=== PATIENT | male | born 1990 | race African-American/Black ===

== ENCOUNTER 2019-09-04 19:12 | Emergency (ER) | payer MEDICAID ==
[~2019-09-04] VITALS: Ht 185.4 cm; Wt 101.9 kg
[2019-09-04 19:27] VITALS: BP 133/68
--- NOTE | 2019-09-04 20:10 | PHYS DOC ---
Past History Past Medical History: Asthma Past Surgical History: Other Additional Past Surgical Histo: RIGHT FEMUR Alcohol Use: None General Adult EDM: Chief Complaint: LOWER EXT PAIN HPI: HPI: " I jumped off a wall about two weeks ago.. and I felt a tear or pull in my Lt lower hip and leg.... ever since... It is really sore in this hip and Lt. leg.. it gets better.. then I move wrong and it gets worse..." Patient is a 28 year old Male who presents with above hx and complaints of Lt hip and pelvis pain after jumping off a wall two weeks ago. Pt. is localized to Lt lower groin. No obvious hernia. Patient pain appears to follow muscle groups of left groin. ( Pectinus, psoas, adductor). Increased pain when patient attempts to abduct leg and do straight leg lift. No adenopathy appreciated. Patient denies other injury. Patient is able to walk with minimal discomfort. However when he attempts to do" high steps" or walk on uneven ground he get groin pain. This neurovascular intact. Pulses are equal in the groin. Patient denies any motivation. Patient denies any travel or sick contacts. Patient denies immunosuppression. Patient normally follows with Dr. Tavares. Review of Systems: Review of Systems: Constitutional: Denies fever or chills Eyes: Denies change in visual acuity HENT: Denies nasal congestion or sore throat Respiratory: Denies cough or shortness of breath Cardiovascular: Denies chest pain or edema GI: Denies abdominal pain, nausea, vomiting, bloody stools or diarrhea : Denies dysuria Musculoskeletal: Complaints of Lt hip and groin pain Integument: Denies rash Neurologic: Denies headache, focal weakness or sensory changes Endocrine: Denies polyuria or polydipsia Lymphatic: Denies swollen glands Psychiatric: Denies depression or anxiety Heart Score: Risk Factors: Risk Factors: DM, Current or recent (<one month) smoker, HTN, HLP, family history of CAD, obesity. Risk Scores: Score 0 - 3: 2.5% MACE over next 6 weeks - Discharge Home Score 4 - 6: 20.3% MACE over next 6 weeks - Admit for Clinical Observation Score 7 - 10: 72.7% MACE over next 6 weeks - Early Invasive Strategies Family History: Family History: Noncontributory to presentation Current Medications: Current Meds: See nursing for home meds Allergies: Allergies: Allergies Coded Allergies Type Severity Reaction Last Updated Verified No Known Drug Allergies 09/04/19 No Physical Exam: PE: Constitutional: Well developed, well nourished, mild to moderate distress, non- toxic appearance. [] HENT: Normocephalic, atraumatic, bilateral external ears normal, oropharynx moist, no oral exudates, nose normal. [] Eyes: PERRLA, EOMI, conjunctiva normal, no discharge. [] Neck: Normal range of motion, no tenderness, supple, no stridor. [] Cardiovascular:Heart rate regular rhythm, no murmur [] Lungs & Thorax: Bilateral breath sounds equal at apex with few scattered wheezes auscultation [] Abdomen: Bowel sounds normal, soft, no tenderness, no masses, no pulsatile masses. [] Skin: Warm, dry, no erythema, no rash. [] Back: No tenderness, no CVA tenderness. [] Extremities: No tenderness, no cyanosis, no clubbing, ROM intact, no edema. [] Except complaints in left groin area as per HPI. Old surgery scar Rt., hip area. Neurologic: Alert and oriented X 3, normal motor function, normal sensory function, no focal deficits noted. [] Psychologic: Affect anxious, judgement normal, mood normal. [] Current Patient Data: Vital Signs: Vital Signs Date Time Temp Pulse Resp B/P (MAP) Pulse Ox O2 Delivery O2 Flow Rate FiO2 09/04/19 19:27 97.8 86 18 133/68 (89) 99 Room Air EKG: EKG: [] Radiology/Procedures: Radiology/Procedures: [][address] [address] IMAGING REPORT Signed PATIENT: PHILIPP CASTANEDA JACCOUNT: [id number] : 1990 LOCATION: ER AGE: 28 SEX: M EXAM STATUS: REG ER ORD. PHYSICIAN: ABHIJIT VICKERS MD REASON: Pain after jumping off wall to left hip and pelvis PROCEDURE: HIP LEFT 2V WITH PELVIS Pelvis and left Two View hip: Clinical History: Pain after jumping off of a wall. Technique: AP view the pelvis AP and frog leg views of the left hip were obtained. Comparison: None. Findings: There is obscuration of bony detail of sacrum due to overlying bowel gas. There has been prior repair of a right hip fracture with 3 partially threaded screws. The remaining visualized osseous structures appear normal. The femoral acetabular relationship is normal. Impression: No acute findings. Electronically signed by: Jame Patiño III, MD (09/04/2019 9:19 PM) [id number] DICTATED AND SIGNED BY: JAME PATIÑO III, MD DATE: 09/04/192118 CC: ABHIJIT VICKERS MD; PCP,NO ~ Course & Med Decision Making: Course & Med Decision Making Pertinent Labs and Imaging studies reviewed. (See chart for details) Ice packs as needed. Take Tylenol and Ibuprofen for pain. Follow-up primary care. Return for any concerns. Patient warned that groin muscle tear sometimes takes weeks to months to heal. Impression : 1. Lt. Groin muscle tear [] Alfredo Disclaimer: Alfredo Disclaimer: This electronic medical record was generated, in whole or in part, using a voice recognition dictation system. Departure Departure: Disposition: HOME/RESIDENCE PRIOR TO ADM Condition: STABLE Referrals: PCP,GRETCHEN (PCP) Alfredo Disclaimer This chart was dictated in whole or in part using Voice Recognition software in a busy, high-work load, and often noisy Emergency Department environment. It may contain unintended and wholly unrecognized errors or omissions. ABHIJIT VICKERS MD Sep 04, 2019 20:10
--- NOTE | 2019-09-04 21:23 | RAD ---
Pelvis and left Two View hip: Clinical History: Pain after jumping off of a wall. Technique: AP view the pelvis AP and frog leg views of the left hip were obtained. Comparison: None. Findings: There is obscuration of bony detail of sacrum due to overlying bowel gas. There has been prior repair of a right hip fracture with 3 partially threaded screws. The remaining visualized osseous structures appear normal. The femoral acetabular relationship is normal. Impression: No acute findings. Electronically signed by: Del Tamayo III, MD (09/04/2019 9:19 PM) [id number]
== END 2019-09-04 21:35 | disposition home or self-care (01) ==
LOC: ER 19:12
DX: S39.011A Strain of muscle, fascia and tendon of abdomen, initial encounter (principal); M25.552 Pain in left hip; R10.2 Pelvic and perineal pain; J45.909 Unspecified asthma, uncomplicated; Z98.890 Other specified postprocedural states; W17.89XA Other fall from one level to another, initial encounter; Y93.39 Activity, other involving climbing, rappelling and jumping off; Y92.89 Other specified places as the place of occurrence of the external cause; Y99.8 Other external cause status
CPT/HCPCS: 73502; 99283

== ENCOUNTER 2020-03-27 03:32 | Emergency (ER) | payer MEDICAID ==
[~2020-03-27] VITALS: Ht 185.4 cm; Wt 101.9 kg
[2020-03-27 03:35] VITALS: BP 156/94
[2020-03-27] MEDS ORDERED: OXYC-325 PO (04:05)
[2020-03-27] MEDS ORDERED: CLIN300C8 PO (04:05)
--- NOTE | 2020-03-27 04:05 | PHYS DOC ---
Past History Past Medical History: Asthma Past Surgical History: Other Additional Past Surgical Histo: RIGHT FEMUR Alcohol Use: None Adult General Chief Complaint Chief Complaint: DENTAL PROBLEM HPI HPI Patient is a 29-year-old previously healthy male who presents to the emergency room complaining of dental pain. This is been ongoing intermittently for several months. He saw a dentist at [facility] who told him that he needed his tooth removed. He has not yet gotten an appointment for this and is supposed to follow-up with [facility] at [place]. The last 3 days he has had increasi ng pain in his left back bottom tooth. He says denies any facial swelling or fever. He does generally feel a lot of pain that is worse with swallowing. Is not having difficulty swallowing or talking. He has not had any drainage from his mouth. He is concerned it may be infected. Review of Systems Review of Systems Complete ROS is negative unless otherwise documented in HPI Allergies Allergies Allergies Coded Allergies Type Severity Reaction Last Updated Verified No Known Drug Allergies 09/04/19 No Physical Exam Physical Exam General: Awake, alert, NAD. Well Nourished, well hydrated. Cooperative HEENT: Atraumatic, EOMI, PERRL, airway patent, moist oral mucosa, left lower wisdom tooth with significant decay and missing angled with surrounding soft tis edda swelling, no fluctuance area Neck: Supple, trachea midline Respiratory: CTA bilaterally, normal effort, no wheezing/crackles CV: RRR, no murmur, cap refill <2 GI: Soft, nondistended, nontender, no masses MSK: No obvious deformities Skin: Warm, dry, intact Neuro: A&O x3, speech NL, sensory and motor grossly intact, no focal deficits Psych: Normal affect, normal mood, not suicidal or homicidal Current Patient Data Vital Signs Vital Signs Date Time Temp Pulse Resp B/P (MAP) Pulse Ox O2 Delivery O2 Flow Rate FiO2 03/27/20 03:35 98.8 68 20 156/94 (114) 100 Room Air EKG EKG [] Radiology/Procedures Radiology/Procedures [] Heart Score Risk Factors: Risk Factors: DM, Current or recent (<one month) smoker, HTN, HLP, family history of CAD, obesity. Risk Scores: Risk Factors: DM, Current or recent (<one month) smoker, HTN, HLP, family history of CAD, obesity. Course & Med Decision Making Course & Med Decision Making Pertinent Labs and Imaging studies reviewed. (See chart for details) Patient is a 29-year-old male who presents to the emergency room with pain in his wisdom tooth. Patient appears to need to have this tooth pulled. He does have resources to follow-up with [facility] at [place] and can call them tomorrow he states. He is not have any difficulty with swallowing, talking. He has not had any significant swelling in his face. At this time it appears that he is likely getting a tooth infection. There is no area of fluctuance that can be drained at this time. Patient will be placed on antibiotics and I have discussed with him that it is very important he follow-up in the [facility] clinic as soon as possible. Patient's test results and vitals while in the ED were fully reviewed and discussed with the patient. Patient is stable and at this time does not need admission to the hospital. We have discussed strict return precautions and the importance of following up with their Primary Care Physician. Patient stated understanding and was given an opportunity to ask any questions. Patient is in agreement with plan. Dragon Disclaimer Dragon Disclaimer This electronic medical record was generated, in whole or in part, using a voice recognition dictation system. Departure Departure: Impression: Primary Impression: Dental infection Disposition: 01 DC HOME SELF CARE/HOMELESS Condition: STABLE Referrals: PCP,GRETCHEN (PCP) Patient Instructions: Dental Abscess Additional Instructions: Please call Oral surgeon tomorrow to get an appointment. Return if you develop swelling, fever, difficulty swallowing, difficulty talking. Scripts Oxycodone HCl/Acetaminophen (Percocet 5-325 mg Tablet) 1 Each Tablet 1 TAB PO PRN QID PRN for SEVERE PAIN 7-10 MDD 4 Tablet(s) for 5 Days, #10 TAB 0 Refills Prov: MAHAD GASPAR MD 03/27/20 Clindamycin Hcl (CLINDAMYCIN HCL) 300 Mg Capsule 1 CAP PO TID for dental, #21 CAP Prov: MAHAD GASPAR MD 03/27/20 MAHAD GASPAR MD Mar 27, 2020 04:05
[2020-03-27] MEDS ORDERED: CLINDAMYCIN HCL 150 MG CAPSULE PO ONE (04:30)
[2020-03-27] MEDS ORDERED: oxyCODONE/APAP 5/325 1 TAB TABLET PO ONE (04:30)
== END 2020-03-27 04:40 | disposition home or self-care (01) ==
LOC: ER 03:32
DX: K04.7 Periapical abscess without sinus (principal); J45.909 Unspecified asthma, uncomplicated
CPT/HCPCS: 99283

== ENCOUNTER 2020-10-01 19:43 | Emergency (ER) | payer MEDICAID, OTHER ==
[~2020-10-01] VITALS: Ht 182.9 cm; Wt 84.5 kg
[~2020-10-01 19:43] MED LIST: CLIN300C9 PO; OXYC-325 PO
[2020-10-01 20:03] VITALS: BP 135/76
--- NOTE | 2020-10-01 20:40 | PHYS DOC ---
Past History Past Medical History: Asthma Past Surgical History: Other Additional Past Surgical Histo: RIGHT FEMUR Alcohol Use: None Adult General Chief Complaint Chief Complaint: DENTAL PROBLEM HPI HPI Patient is a 29-year-old male who presents with a chief complaint of dental pain. States he had his wisdom teeth pulled 10 days ago and noticed yesterday that he was having some tenderness and swelling at the site of surgery. States he tried calling his oral surgeon but was unable to get through. States he has pain in the area, 6 out of 10, dull and achy in nature. States he took some Tylenol at home with which gave only minimal relief. States he was given Augmentin and ibuprofen prescriptions when he left his dentist but did not get them filled. Denies any pain or trouble swallowing, fevers, chest pain, shortness of breath, abdominal pain, nausea, vomiting. Review of Systems Review of Systems Review of systems otherwise unremarkable except noted in HPI Allergies Allergies Allergies Coded Allergies Type Severity Reaction Last Updated Verified No Known Drug Allergies 09/04/19 No Physical Exam Physical Exam Constitutional: Well developed, well nourished, no acute distress, non-toxic appearance. [] HENT: Normocephalic, atraumatic, bilateral external ears normal, oropharynx moist, no oral exudates, nose normal. [] Eyes: conjunctiva normal, no discharge. [] Neck: Normal range of motion, no tenderness, supple, no lymphadenopathy [] Neurologic: Alert and oriented X 3, no focal deficits noted. [] Psychologic: Affect normal, judgement normal, mood normal. [] Current Patient Data Vital Signs Vital Signs Date Time Temp Pulse Resp B/P (MAP) Pulse Ox O2 Delivery O2 Flow Rate FiO2 10/01/20 20:03 98.6 80 16 135/76 (95) 98 Room Air EKG EKG [] Radiology/Procedures Radiology/Procedures [] Heart Score C/O Chest Pain: No Risk Factors: Risk Factors: DM, Current or recent (<one month) smoker, HTN, HLP, family history of CAD, obesity. Risk Scores: Risk Factors: DM, Current or recent (<one month) smoker, HTN, HLP, family history of CAD, obesity. Course & Med Decision Making Course & Med Decision Making Patient is a 29-year-old male who presents with dental pain Vital signs not concerning. Physical exam noted above. Patient given oral pain medicine in the ED. Started on antibiotics. Discussed all findings with patient. Discussed pain management at home. Advised on antibiotics. Advised to call oral surgeon first thing in the morning and set up a ER follow- up visit immediately. Gave strict return precautions to the ED. Patient grateful, verbalized understanding and agreed with plan of discharge. [] Dragon Disclaimer Dragon Disclaimer This electronic medical record was generated, in whole or in part, using a voice recognition dictation system. Departure Departure: Disposition: HOME / SELF CARE / HOMELESS Condition: GOOD Referrals: PCP,GRETCHEN (PCP) STELLA ENGLISH MD Patient Instructions: Dental Pain Additional Instructions: Thank you for coming into the emergency department tonight and allowing us to take care of you. Please read the attached information very carefully as discussed. Please begin a ibuprofen, Tylenol and oral warm salt mouthwash/gargle as discussed. Please take all of your antibiotics as pres cribed. Please call your oral surgeon first thing in the morning to update on your ED visit and need for immediate reevaluation for dental infection. Please come back to the emergency department with new or concerning symptoms as discussed. Scripts Hydrocodone Bit/Acetaminophen (HYDROCODONE-APAP 5-325 ) 1 Each Tablet 1 TAB PO TID PRN for PAIN for 3 Days, #9 TAB 0 Refills Prov: MARIA T PIKE MD 10/01/20 Amoxicillin/Potassium Clav (AUGMENTIN 875-125 TABLET) 1 Each Tablet 1 TAB PO BID for dental infection for 10 Days, #19 TAB 0 Refills Prov: MARIA T PIKE MD 10/01/20 MARIA T PIKE MD Oct 01, 2020 20:40
[2020-10-01] MEDS ORDERED: IBUPROFEN 600 MG TABLET. PO ONE (20:45)
[2020-10-01] MEDS ORDERED: HYDROcodone/APAP 5/325MG 1 TAB TABLET PO ONE (20:45)
[2020-10-01] MEDS ORDERED: AMOXICILLIN/K CLAV 875/125MG TABLET. PO ONE (20:45)
[2020-10-01] MEDS ORDERED: AMOX1TAB61 PO (21:17)
[2020-10-01] MEDS ORDERED: HYDR-2155 PO (21:17)
== END 2020-10-01 21:23 | disposition home or self-care (01) ==
LOC: ER 19:43
DX: K08.89 Other specified disorders of teeth and supporting structures (principal); R22.0 Localized swelling, mass and lump, head; J45.909 Unspecified asthma, uncomplicated
CPT/HCPCS: 99284